=== PATIENT | female | born 1955 | race Caucasian/White ===

== ENCOUNTER 2016-09-21 19:07 | Emergency (ER) | payer MEDICARE, MEDICAID ==
[2016-09-21] MEDS ORDERED: ORPHENADRINE 60 MG/2 ML AMP ONE (21:54)
[2016-09-21] MEDS ORDERED: METHYLPRED SOD SUCC 125 MG/2 ML VIAL ONE (21:54)
[2016-09-21] MEDS ORDERED: METOCLOPRAMIDE 10 MG/2 ML VIAL ONE (21:54)
[2016-09-21] MEDS ORDERED: KETOROLAC 30 MG/ML VIAL ONE (21:55)
[2016-09-21] MEDS ORDERED: SODIUM CHLORIDE 0.9% 1,000 ML ONE (21:55)
[2016-09-21] MEDS ORDERED: DILAUDID 1 MG/ML AMP ONE (21:55)
== END 2016-09-21 23:49 | disposition home or self-care (01) ==
LOC: ER 19:07
DX: G44.89 Other headache syndrome (principal); Z79.899 Other long term (current) drug therapy
CPT/HCPCS: 96361; 96374; 96375; 99283; J1170; J1885; J2930